=== PATIENT | female | born 1955 | race Caucasian/White ===

== ENCOUNTER 2018-03-01 16:58 | Emergency (ER) | payer OTHER ==
[2018-03-01] MEDS ORDERED: Sodium Chloride 0.9% 10 ML Syringe FLUSH PRN (17:18)
[2018-03-01] MEDS ORDERED: Ondansetron 4 MG/2 ML SDV IVPUSH ONE (17:19)
[2018-03-01] MEDS ORDERED: dimenhyDRINATE 50 MG Tab PO ONE (17:19)
[2018-03-01] MEDS: Lactated Ringers 1,000 ML IV SCH ×2 (17:20→18:46)
[2018-03-01 18:13] LABS: CHLORIDE,CL 106 mmol/L (98-107); SODIUM,NA 142 mmol/L (136-145)
[2018-03-01 18:14] LABS: ANION GAP 12.6 mmol/L (10-20)
[2018-03-01] MEDS ORDERED: LORazepam 2 MG/ML SDV IVPUSH ONE (18:38)
[2018-03-01] MEDS ORDERED: Lactated Ringers 1,000 ML IV SCH (18:46)
[2018-03-01] MEDS ORDERED: Sodium Chloride 0.9% 500 ML IV SCH (19:00)
--- NOTE | 2018-03-02 02:20 | EDM.PDOC ---
ED HPI GENERAL MEDICAL PROBLEM - General Chief Complaint: General Stated Complaint: DIZZINESS Time Seen by Provider: 03/01/18 17:05 Source of Information: Reports: Patient History Limitations: Reports: No Limitations - History of Present Illness INITIAL COMMENTS - FREE TEXT/NARRATIVE: Pt. presents to ER with complaints of vertigo that started approx. 1 week, worse over the past 2 days ago. Denies any head trauma, chest pain, or shortness of breath. Pt. states that she has never experienced this in the past. Denies any nausea/vomiting/diarrhea. She states that she is nauseated. Denies vomiting. Onset: Today Onset Date: 02/23/18 Location: Reports: Generalized Associated Symptoms: Reports: Nausea/Vomiting - Related Data Allergies Allergy/AdvReac Type Severity Reaction Status Date / Time No Known Allergies Allergy Verified 03/01/18 17:21 Home Meds: Home Meds Amitriptyline [Elavil] 50 mg PO BEDTIME 03/01/18 [History] Aspirin 81 mg PO DAILY 03/01/18 [History] Calcium Carbonate/Vitamin D3 [Calcium 500 + Vit D 400] 1 each PO BID 03/01/18 [ History] Cholecalciferol (Vitamin D3) [D-2000] 2,000 unit PO DAILY 03/01/18 [History] Ibuprofen 600 mg PO TID PRN 03/01/18 [History] Lisinopril 40 mg PO DAILY 03/01/18 [History] Metoprolol Succinate [[place] Sprinkle] 50 mg PO DAILY 03/01/18 [History] Pravastatin Sodium 20 mg PO DAILY 03/01/18 [History] hydroCHLOROthiazide [Hydrochlorothiazide] 25 mg PO DAILY 03/01/18 [History] Past Medical History HEENT History: Reports: Allergic Rhinitis, Other (See Below) Other HEENT History: Deviated nasal septum, snoring, myalgia Cardiovascular History: Reports: Bypass, High Cholesterol, Hypertension, Other ( See Below) Other Cardiovascular History: costochondritis [employer] T[employer] EXAMINER History: Reports: Other (See Below) 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 Musculoskeletal History: Reports: Fibromyalgia, Other (See Below) Other Musculoskeletal History: elbow pain, trigger point for back pain, osteopenia, pain in limb, spondyloarthopathy, inflammatory arthiritis Social & Family History - Tobacco Use Smoking Status *Q: Never Smoker - Recreational Drug Use Recreational Drug Use: No ED ROS GENERAL - Review of Systems Review Of Systems: See Below Constitutional: Reports: No Symptoms HEENT: Reports: No Symptoms Respiratory: Reports: No Symptoms Cardiovascular: Reports: No Symptoms Endocrine: Reports: No Symptoms GI/Abdominal: Reports: No Symptoms : Reports: No Symptoms Musculoskeletal: Reports: No Symptoms Skin: Reports: No Symptoms Neurological: Reports: Other (vertigo) Psychiatric: Reports: No Symptoms Hematologic/Lymphatic: Reports: No Symptoms Immunologic: Reports: No Symptoms ED EXAM, GENERAL - Physical Exam Exam: See Below Exam Limited By: No Limitations General Appearance: Alert, WD/WN, No Apparent Distress Head: Atraumatic, Normocephalic Neck: Normal Inspection, Supple, Non-Tender, Full Range of Motion Respiratory/Chest: No Respiratory Distress, Lungs Clear, Normal Breath Sounds, No Accessory Muscle Use, Chest Non-Tender Cardiovascular: Normal Peripheral Pulses, Regular Rate, Rhythm, No Edema, No Gallop, No JVD, No Murmur, No Rub Extremities: Normal Inspection, Normal Range of Motion, Non-Tender, Normal Capillary Refill, No Pedal Edema Neurological: Alert, Oriented, CN II-XII Intact, Normal Cognition, Normal Gait, Normal Reflexes, No Motor/Sensory Deficits Psychiatric: Normal Affect, Normal Mood Skin Exam: Warm, Dry, Intact, Normal Color, No Rash Course - Vital Signs Last Recorded V/S: Last Vital Signs Temp 36.2 C 03/01/18 17:05 Pulse 71 03/01/18 17:05 Resp 16 03/01/18 17:05 BP 102/81 03/01/18 17:05 Pulse Ox 98 03/01/18 17:05 - Orders/Labs/Meds Orders: Active Orders 24 hr Category Date Time Status EKG Documentation Completion [RC] STAT Care 03/01/18 17:18 Active Head wo Cont [CT] Stat Exams 03/01/18 17:17 Taken Peripheral IV Insertion Adult [OM.PC] Routine Oth 03/01/18 17:18 Ordered Labs: Laboratory Tests 03/01/18 03/01/18 Range/Units 17:20 17:20 WBC 10.5 H (4.0-10.0) x10^3/uL RBC 4.31 (4.00-5.50) x10^6/uL Hgb 14.2 (12.0-16.0) g/dL Hct 41.0 (33.0-47.0) % MCV 95.1 H (78.0-93.0) fL MCH 32.9 H (26.0-32.0) pg MCHC 34.6 (32.0-36.0) g/dL RDW Coeff of [place]ra[place] 12.7 (10.0-15.0) % Plt Count 291 (130-400) x10^3/uL Neut % (Auto) 53.6 (50.0-80.0) % Lymph % (Auto) 32.7 (25.0-50.0) % [place] % (Auto) 9.5 (2.0-11.0) % Eos % (Auto) 4.0 (0.0-4.0) % Baso % (Auto) 0.2 (0.2-1.2) % Sodium 142 (136-145) mmol/L Potassium 3.6 (3.5-5.1) mmol/L Chloride 106 (98-107) mmol/L Carbon Dioxide 27 (21-32) mmol/L Anion Gap 12.6 (10-20) mmol/L BUN 14 (7-18) mg/dL Creatinine 0.8 (0.55-1.02) mg/dL Est Cr Clr Drug Dosing 62.96 mL/min Estimated GFR (MDRD) > 60 Glucose 113 H (74-106) mg/dL Calcium 8.6 (8.5-10.1) mg/dL Corrected Calcium 9.08 (8.5-10.1) mg/dL Phosphorus 2.0 L (2.6-4.7) mg/dL Magnesium 2.1 (1.8-2.4) mg/dL Total Bilirubin 0.2 (0.2-1.0) mg/dL AST 15 (15-37) U/L ALT 26 (14-59) U/L Alkaline Phosphatase 63 (46-116) U/L Troponin I < 0.017 (<=0.056) ng/mL Total Protein 7.1 (6.4-8.2) g/dL Albumin 3.4 (3.4-5.0) g/dL Globulin 3.7 Albumin/Globulin Ratio 0.92 Meds: Medications Discontinued Medications Generic Name Dose Route Start Last Admin Trade Name Freq PRN Reason Stop Dose Admin Dimenhydrinate 50 mg 03/01/18 17:19 03/01/18 17:26 Driminate PO 03/01/18 17:20 50 mg ONETIME ONE Administration Lactated Ringer's 1,000 mls @ 500 mls/hr 03/01/18 17:30 03/01/18 18:46 Ringers, Lactated IV 500 mls/hr ASDIRECTED DOUG Administration Lactated Ringer's 1,000 mls @ 500 mls/hr 03/01/18 18:46 03/01/18 18:46 Ringers, Lactated IV 500 mls/hr ASDIRECTED DOUG Administration Lorazepam 1 mg 03/01/18 18:38 03/01/18 18:45 Ativan IVPUSH 03/01/18 18:39 1 mg ONETIME ONE Administration Ondansetron HCl 4 mg 03/01/18 17:19 03/01/18 17:27 Zofran IVPUSH 03/01/18 17:20 4 mg ONETIME ONE Administration Sodium Chloride 10 ml 03/01/18 17:18 Saline Flush FLUSH ASDIRECTED PRN Keep Vein Open - Radiology Interpretation Free Text/Narrative:: CT brain negative for acute pathology Departure - Departure Time of Disposition: 19:45 Disposition: Home, Self-Care 01 Condition: Good Clinical Impression: Labyrinthitis - Discharge Information Instructions: Labyrinthitis Referrals: Miracle Olson MD [Primary Care Provider] - Forms: ED Department Discharge Additional Instructions: Physical therapy will contact you regarding an appointment. Ativan 0.5mg twice daily for vertigo. May also try dimenhydrinate (dramamine) or meclizine as well. - My Orders Last 24 Hours: My Active Orders 03/01/18 17:17 Head wo Cont [CT] Stat 03/01/18 17:18 EKG Documentation Completion [RC] STAT Peripheral IV Insertion Adult [OM.PC] Routine - Assessment/Plan Last 24 Hours: My Active Orders 03/01/18 17:17 Head wo Cont [CT] Stat 03/01/18 17:18 EKG Documentation Completion [RC] STAT Peripheral IV Insertion Adult [OM.PC] Routine
== END 2018-03-01 19:45 | disposition home or self-care (01) ==
LOC: VM.ED 16:58
DX: H83.09 Labyrinthitis, unspecified ear (principal); I10 Essential (primary) hypertension; E78.00 Pure hypercholesterolemia, unspecified; Z79.899 Other long term (current) drug therapy; Z79.82 Long term (current) use of aspirin
CPT/HCPCS: 36415; 70450; 80053; 83735; 84100; 84484; 85025; 93005; 96361; 96374; 96375; 99284; A9270-GY; J2060; J2405; J7120